=== PATIENT | male | born 1940 | race Caucasian/White ===

== ENCOUNTER 2016-11-02 22:35 | Inpatient (IN) | payer OTHER ==
[~2016-11-02] VITALS: Ht 165.1 cm; Wt 97.5 kg
[~2016-11-02 22:35] MED LIST: METOPROLOL; VALS80TA2 PO
[2016-11-02 22:41] VITALS: BP_SYST 164
--- NOTE | 2016-11-02 23:07 | NUR ---
Patient triaged and placed in waiting room. VSS and patient appears in no acute distress at this time. Accompanied by partner , awaiting available bed, and MD notified of need for MSE.Labs ordered , MD aware
--- NOTE | 2016-11-02 23:08 | NUR ---
Report given to Eileen PARIS
--- NOTE | 2016-11-02 23:26 | NUR ---
Patient to ER bed 1 to gown for evaluation. Side rails up. Report given to WELLINGTON FELIX.
--- NOTE | 2016-11-02 23:30 | NUR ---
Pt states he has been having lower abd pain since yesterday and today it has been getting worse. Rates it at 10/10. Nausea with vomitting. Will continue to monitor. No other injuries or complaints mentioned/noted. No distress noted.
--- NOTE | 2016-11-02 23:30 | NUR ---
ER Dr. Coe at bedside examining patient.
--- NOTE | 2016-11-02 23:30 | NUR ---
Note aminah in EDM - 11/02/16 at 2346 by GENEVA Pt states that she had three mechanical falls due to her legs "giving out." Pt states she land on her R buttock all three times. Pt states this has not happen to her before. Pt is getting chemo and radiation for bone cancer. Pt states she is not any pain or discomfort. Denies N/V. Pt is AAOx4. Will continue to monitor. No other injuries or complaints mentioned/noted. No distress noted.
[2016-11-02 23:37] LABS: BASOPHILS # (AUTO) 0.1 K/uL (0.0-0.2); BASOPHILS % (AUTO) 0.7 % (0.0-2.0); EOSINOPHILS % (AUTO) 0.1 % (0.0-4.0); HEMATOCRIT 44.3 % (36-54); HEMOGLOBIN 14.4 g/dL (14.0-18.0); LYMPHOCYTES % (AUTO) 8.7 % (20.5-51.5); MEAN CORPUSCULAR HEMOGLOBIN 29 pg (27-31); MEAN CORPUSCULAR HGB CONC 32 % (32-36); MEAN CORPUSCULAR VOLUME 90 fL (79.0-98.0); MONOCYTES # (AUTO) 0.3 K/uL (0.0-1.0); MONOCYTES % (AUTO) 2.3 % (1.7-9.3); NEUTROPHILS # (AUTO) 10.5 K/uL (1.8-7.7); NEUTROPHILS % (AUTO) 88.2 % (40.0-70.0); PLATELET COUNT (AUTO) 168 K/uL (130-430); RED BLOOD CELL COUNT(AUTO) 4.93 MIL/uL (4.2-6.2); RED CELL DISTRIBUTION WIDTH 13.5 % (9.0-15.0); WHITE BLOOD COUNT (AUTO) 11.9 K/uL (4.8-10.8)
[2016-11-02] MEDS ORDERED: NACL 0.9% 1,000 ML IV ONE (23:37)
[2016-11-02] MEDS ORDERED: MORPHINE 4 MG/ML INJ. SYRINGE IVP ONE (23:45)
[2016-11-02] MEDS ORDERED: ONDANSETRON HCL 4 MG/2 ML VIAL IVP ONE (23:45)
[2016-11-02] MEDS ORDERED: DIPHENHYDRAMINE INJ 50 MG/ML VIAL IVP ONE (23:45)
[2016-11-02 23:49] LABS: ANION GAP 8 (5-15); CALCIUM 9.6 mg/dL (8.4-11.0); CHLORIDE 103 mmol/L (98-107); CREATININE 1.75 mg/dL (0.55-1.30); GLUCOSE 153 mg/dL (70-99); POTASSIUM 3.9 mmol/L (3.5-5.1); SODIUM SERUM 141 mmol/L (136-145); UREA NITROGEN, BLOOD 26 mg/dL (8-21)
[2016-11-02 23:54] LABS: ALANINE AMINOTRANSFERASE 28 U/L (12-78); ALBUMIN 3.9 g/dL (3.4-4.8); ASPARTATE AMINOTRANSFERASE 22 U/L (10-37); LIPASE 145 U/L (73-393); TOTAL BILIRUBIN 0.7 mg/dL (0.0-1.0); TOTAL PROTEIN, SERUM 8.5 g/dL (6.4-8.3)
--- NOTE | 2016-11-03 | NUR ---
# 20 gauge angiocath placed to R AC. Use of asceptic technique. Opsite placed over site. Blood return noted. Flushed with 10 cc of normal saline. No evidence of infiltration noted. Patient tolerated well.
[2016-11-03 01:42] LABS: PROTHROMBIN TIME 10.9 SECS (9.5-12.5)
[2016-11-03] MEDS ORDERED: ONDANSETRON HCL 4 MG/2 ML VIAL IVP PRN (02:15)
[2016-11-03] MEDS ORDERED: LOSA100T11 PO (02:29)
[2016-11-03] MEDS ORDERED: VALS160T2 PO (02:29)
[2016-11-03] MEDS ORDERED: ALLO100T PO (02:29)
[2016-11-03] MEDS ORDERED: SIMV80TA74 PO (02:29)
[2016-11-03] MEDS ORDERED: NIFE60TA7 PO (02:29)
[2016-11-03] MEDS ORDERED: LIP40 PO (02:29)
[2016-11-03] MEDS ORDERED: OMEP20CA10 PO (02:29)
[2016-11-03] MEDS ORDERED: APIX5TAB PO (02:29)
[2016-11-03] MEDS ORDERED: METO-442 PO (02:29)
[2016-11-03] MEDS ORDERED: TERA5CAP58 PO (02:29)
--- NOTE | 2016-11-03 02:30 | NUR ---
Medication reconciliation completed with information provided by PATIENT. Any prior medication reconciliation on file was reviewed and corrected.
--- NOTE | 2016-11-03 02:30 | NUR ---
Patient will be admitted to care of Dr. Flynn. Admitted to Med Surg unit. Will go to room 118A. Belongings list completed. Summary report printed. Report will be given at bedside.
--- NOTE | 2016-11-03 02:37 | NUR ---
ADMISSION NOTE Received patient from ER via abad, received report from ISIDRO PARIS. Patient admitted with diagnosis of SMALL BOWEL OBSTRUCTION. Patient oriented to hospital routine, call light, toileting and safety-patient verbalized understanding.
[2016-11-03 02:50] VITALS: BP_SYST 137
[2016-11-03] MEDS: D5NS 1,000 ML IV SCH (03:17)
[2016-11-03] MEDS: MORPHINE 2 MG/ML INJ. SYRINGE IVP PRN ×2 (03:25→09:46)
--- NOTE | 2016-11-03 03:45 | NUR ---
initial notes: pt came in complain of lower abdominal pain. ambulate to bed. steady gait. no acute distress. no sob. vital sign are with in normal limit, assess pt. iv lock right ac gauge 20-intact and patent. explained to pt poc. orient to room, call light, tv, bathroom. explain to pt medication and side effects specially pain medication. safety and instructed to call for assistance. pt verbalized understanding. needs attended. call light in reach. side rails up. bed alarm on. will follow-up.
--- NOTE | 2016-11-03 05:56 | NUR ---
round notes: assisted pt to urinate, specimen collect and send to lab. for ua. needs attended. call light in reach. will follow-up.
[2016-11-03 06:09] LABS: BILIRUBIN,URINE NEGATIVE (NEGATIVE); CLARITY/URINE SL HAZY (CLEAR); COLOR,URINE YELLOW (YELLOW); GLUCOSE,URINE NEGATIVE (NEGATIVE); KETONES,URINE NEGATIVE (NEGATIVE); LEUKOCYTE ESTERASE ,URINE NEGATIVE (NEGATIVE); NITRITE, URINE NEGATIVE (NEGATIVE); PROTEIN URINE TRACE (NEGATIVE); UROBILINOGEN,URINE 0.2 (0.2-1.0)
[2016-11-03 06:15] VITALS: BP_SYST 135
[2016-11-03 06:30] LABS: BLOOD, URINE TRACE (NEGATIVE)
[2016-11-03 06:34] LABS: BACTERIA,URINE RARE /HPF (None Seen); RBC,URINE 0-3 /HPF (0-3); WBC,URINE NONE SEEN /HPF (0-3)
--- NOTE | 2016-11-03 07:29 | NUR ---
CLOSING: Pt is resting. stable. no pain. no distress. no sob. ivf infusing well. call light in reach, safety on. bedside report to am nurse.
--- NOTE | 2016-11-03 08:43 | NUR ---
0730 AM ROUNDSLATE ENTRY DUE TO PT CARE PT SITTING UP AT EDGE OF BED..DENIES PAIN AT THIS TIME...DENIES N/V/D...IVF INFUSING WELL TO RAC...PT AWARE OF NPO STATUS...WILL CONT TO MONITOR
--- NOTE | 2016-11-03 09:48 | NUR ---
PT C/O 03/09 PAIN TO ABDOMEN..COVERING NURSE WILL MEDICATE
[2016-11-03 10:15] LABS: BASOPHILS % (AUTO) 0.1 % (0.0-2.0); EOSINOPHILS % (AUTO) 0.1 % (0.0-4.0); HEMATOCRIT 40.5 % (36-54); HEMOGLOBIN 13.2 g/dL (14.0-18.0); LYMPHOCYTES # (AUTO) 1.2 K/uL (1.0-5.5); LYMPHOCYTES % (AUTO) 11.8 % (20.5-51.5); MEAN CORPUSCULAR HEMOGLOBIN 29 pg (27-31); MEAN CORPUSCULAR HGB CONC 33 % (32-36); MEAN CORPUSCULAR VOLUME 90 fL (79.0-98.0); MONOCYTES # (AUTO) 0.6 K/uL (0.0-1.0); PLATELET COUNT (AUTO) 176 K/uL (130-430); RED BLOOD CELL COUNT(AUTO) 4.49 MIL/uL (4.2-6.2); RED CELL DISTRIBUTION WIDTH 13.6 % (9.0-15.0); WHITE BLOOD COUNT (AUTO) 9.8 K/uL (4.8-10.8)
[2016-11-03 10:34] LABS: ANION GAP 2 (5-15); CALCIUM 8.8 mg/dL (8.4-11.0); CHLORIDE 105 mmol/L (98-107); CREATININE 1.58 mg/dL (0.55-1.30); GLUCOSE 158 mg/dL (70-99); POTASSIUM 3.8 mmol/L (3.5-5.1); SODIUM SERUM 139 mmol/L (136-145); UREA NITROGEN, BLOOD 30 mg/dL (8-21)
[2016-11-03 10:39] LABS: ALANINE AMINOTRANSFERASE 24 U/L (12-78); ALBUMIN 3.3 g/dL (3.4-4.8); ASPARTATE AMINOTRANSFERASE 17 U/L (10-37); TOTAL BILIRUBIN 0.5 mg/dL (0.0-1.0); TOTAL PROTEIN, SERUM 7.5 g/dL (6.4-8.3)
--- NOTE | 2016-11-03 10:53 | NUR ---
CONSULT CALLED FOR DR JOHNSON DX: SBO SPOKE W/WISAM SHABAZZ
[2016-11-03 10:55] VITALS: BP_SYST 139
[2016-11-03 12:25] VITALS: BP_SYST 130
--- NOTE | 2016-11-03 13:14 | NUR ---
UNSUCCESSFUL NGT PLACEMENT ATTEMPTED NGT PLACEMENT 3 TIMES BY TWO NURSES...UNABLE TO ADVANCE TUBE DUE TO RESISTANCE...RADIOLOGIST ( INFORMED)...
[2016-11-03] MEDS ORDERED: GASTROGRAFIN 120 ML ONE (13:34)
--- NOTE | 2016-11-03 15:21 | NUR ---
PT BACK TO ROOM FROM RADIOLOGY...PT WILL RETURN FOR MORE PICTURES IN ABOUT ONE HOUR PT REMAINS NPO
[2016-11-03 16:10] VITALS: BP_SYST 132
--- NOTE | 2016-11-03 18:07 | NUR ---
PT AMBULATED TO RESTROOM WITH STEADY GAIT SMALL BOWEL FOLLOW THROUGH STILL BEING DONE...PT REMAINS NPO
[2016-11-03] MEDS: METOPROLOL TARTRATE 50 MG TABLET PO SCH (22:05)
[2016-11-03 23:46] VITALS: BP_SYST 135
[2016-11-04 04:19] VITALS: BP_SYST 132
[2016-11-04] MEDS: D5NS 1,000 ML IV SCH ×2 (04:54→12:56)
[2016-11-04 08:00] VITALS: BP_SYST 150
--- NOTE | 2016-11-04 08:00 | NUR ---
initial notes rec patient awake alert with ivf infusing well on the l wrist. no infiltration noted. npo maintained until seen by dr howell. denies pain at this time. resp easy and unlabored. no sob noted. bed in low position and side rails up and locked. fall/safety precaution reinforced. call light within reached. will ocntinue to konitor patient.
[2016-11-04] MEDS: METOPROLOL TARTRATE 50 MG TABLET PO SCH ×2 (08:50→20:57)
[2016-11-04] MEDS: NIFEDIPINE 60 MG TABLET.SA (PROCARDIA XL 60 MG) PO SCH (08:51)
--- NOTE | 2016-11-04 08:54 | NUR ---
md dr howell in the room and eval the patient and with orders.
--- NOTE | 2016-11-04 11:00 | NUR ---
rounds ultrasound of the abdomen being done at bedside.
--- NOTE | 2016-11-04 12:31 | NUR ---
seen by dr lee and planned for sx in am. no acute distress noted.
[2016-11-04 12:48] VITALS: BP_SYST 152
--- NOTE | 2016-11-04 14:00 | NUR ---
rounds pt have a late lunch and anderson well. no abd pain noted. resting comfortably.
[2016-11-04 16:00] VITALS: BP_SYST 148
--- NOTE | 2016-11-04 16:00 | NUR ---
rounds pre op teaching rendered to patient with sister at the bedside. instructed re npo post midnight as well and understood.
--- NOTE | 2016-11-04 18:30 | NUR ---
closing notes denies any abdominal pain or nausea and vomiting. no sob noted. call light within reached. bed in low position and side rails up and locked. stable needs attended.
[2016-11-04 19:00] VITALS: BP_SYST 171
--- NOTE | 2016-11-04 19:15 | NUR ---
change of shift.pt.presents stable affect.apprised that pt.is to submit to surgery;11/05/16 per .i am to f/u re;the surgery check-list.pt.diet status;to change:npo @midnight.reiterated to the pt.iv fluids infusing,room air o2 sat5 stable.no c/o pain,nausea,nor sob upon excertion. call light w/in pt's reach.
[2016-11-04 20:00] VITALS: BP_SYST 171
--- NOTE | 2016-11-04 20:00 | NUR ---
pt.assessed.v/s assessed;values w/in normal limits.no c/o pain,nausea.i inquired if the pt.presents request i have offered snacks;p/t midnight pt.stated no he is fine.call light w/in the pt's reach.
--- NOTE | 2016-11-04 21:00 | NUR ---
pt.assessed.no c/o pain nausea.pt.stated the room is cold.pt.provided a blanket;warmed. i have telephoned security and apprised them of the necessity to increase the room temp. call light w/in the pt's reach.
--- NOTE | 2016-11-04 22:00 | NUR ---
pt.assessed.pt.presents quiescent affect;calm,.asleep.no distress/discomfort manifested. iv fluids infusing.call light w/in the pt's reach.
[2016-11-05] VITALS (7 sets, daily range): BP systolic 121–176
--- NOTE | 2016-11-05 | NUR ---
pt.assessed.pt.presents quiescent affect;calm,asleep.no distress/discomfort manifested. call light w/in pt's reach.
--- NOTE | 2016-11-05 01:00 | NUR ---
pt.assessed.pt.presents quiescent affect;calm,asleep.i have attended to the surgery check-list.i have weighted the pt. no distress/discomfort noted.call light w/in pt's reach.
--- NOTE | 2016-11-05 02:00 | NUR ---
pt.assessed.pt.presents quiescent affect;calm,asleep.no distress/discomfort manifested. call light w/in pt's reach.
--- NOTE | 2016-11-05 04:00 | NUR ---
pt.assessed.v/s assessed:values w/in normal limits.no distress/discomfort manifested. call light w/in pt's reach.
[2016-11-05] MEDS: D5NS 1,000 ML IV SCH ×3 (05:23→20:54)
[2016-11-05 06:31] LABS: BASOPHILS % (AUTO) 0.3 % (0.0-2.0); EOSINOPHILS # (AUTO) 0.3 K/uL (0.0-0.4); EOSINOPHILS % (AUTO) 3.3 % (0.0-4.0); HEMATOCRIT 30.3 % (36-54); LYMPHOCYTES % (AUTO) 24.6 % (20.5-51.5); MEAN CORPUSCULAR HEMOGLOBIN 30 pg (27-31); MEAN CORPUSCULAR HGB CONC 33 % (32-36); MEAN CORPUSCULAR VOLUME 91 fL (79.0-98.0); MONOCYTES # (AUTO) 0.5 K/uL (0.0-1.0); MONOCYTES % (AUTO) 5.8 % (1.7-9.3); NEUTROPHILS # (AUTO) 5.3 K/uL (1.8-7.7); PLATELET COUNT (AUTO) 149 K/uL (130-430); PROTHROMBIN TIME 10.4 SECS (9.5-12.5); RED BLOOD CELL COUNT(AUTO) 3.34 MIL/uL (4.2-6.2); RED CELL DISTRIBUTION WIDTH 13.4 % (9.0-15.0); WHITE BLOOD COUNT (AUTO) 8.1 K/uL (4.8-10.8)
[2016-11-05 06:59] LABS: ALANINE AMINOTRANSFERASE 18 U/L (12-78); ALBUMIN 2.8 g/dL (3.4-4.8); ANION GAP 5 (5-15); ASPARTATE AMINOTRANSFERASE 18 U/L (10-37); CALCIUM 7.9 mg/dL (8.4-11.0); CHLORIDE 112 mmol/L (98-107); CREATININE 1.38 mg/dL (0.55-1.30); GLUCOSE 88 mg/dL (70-99); POTASSIUM 3.8 mmol/L (3.5-5.1); SODIUM SERUM 141 mmol/L (136-145); TOTAL BILIRUBIN 0.4 mg/dL (0.0-1.0); TOTAL PROTEIN, SERUM 6.2 g/dL (6.4-8.3); UREA NITROGEN, BLOOD 35 mg/dL (8-21)
--- NOTE | 2016-11-05 07:00 | NUR ---
pt.to submit to surgery:today:11/05/16 per ,.tentative hour;1400pm.i have attended tot surgical check-list.i have collected the mrsa;nares swab.i have attended to the chg -bath.pt.presents diabetic hx: i have assessed the blood glucose:89mg/dl this am.to f/u w/ the attending for order:ac/hs. call light w/in the pt's reach.no c/o pain,nausea this am.
--- NOTE | 2016-11-05 07:46 | NUR ---
initial note patient AOx4, sitting up at bedside, speaking with neighbor, patient denies pain and nausea at this time, patient aware that he is NPO, aware that he has surgery at 2pm
[2016-11-05] MEDS: NIFEDIPINE 60 MG TABLET.SA (PROCARDIA XL 60 MG) PO SCH (09:00)
--- NOTE | 2016-11-05 09:22 | NUR ---
Nutrition Update Carlito Scale 18 noted. Pt admitted for SBO. Diet: NPO BMI: 35.8 kg/m2 RD to follow per nutrition care standards.
[2016-11-05] MEDS: METOPROLOL TARTRATE 50 MG TABLET PO SCH ×2 (09:25→20:54)
--- NOTE | 2016-11-05 10:15 | NUR ---
crimper assembler evaluation Dr. Harris at bedside evaluating patient, verbal order 400 mg amiodarone to be given now, one hour before surgery and Q8H
--- NOTE | 2016-11-05 10:43 | NUR ---
rounds patient Aox4, sitting up at bedside, speaking with , patient aware of his arrhythmic medication to be given now, patient has no complaints at this time
[2016-11-05] MEDS ORDERED: AMIODARONE HCL 200 MG TABLET PO ONE ×2 (10:45→13:00)
--- NOTE | 2016-11-05 11:01 | NUR ---
vital signs recheck vital signs within normal limits patient ambulated to the restroom unassisted, tolerated well
--- NOTE | 2016-11-05 13:13 | NUR ---
rounds patient sitting up at bedside, Aox4, patient has no complaints, denies nausea and vomitting, patient aware that surgery is now scheduled at 1500
--- NOTE | 2016-11-05 14:10 | NUR ---
MD rounds consult with anesthesiologist, Dr. Lucas, Diogo Delgado confirming that patient is not on any blood thinners, requesting accucheck before surgery, notified Dr. LUCAS that patient's blood pressure is 177/71 at this time
[2016-11-05] MEDS ORDERED: ONDANSETRON HCL 4 MG/2 ML VIAL IVP ONE (14:31)
[2016-11-05] MEDS ORDERED: GLYCOPYRROLATE 0.2 MG/ML VIAL IJ ONE (14:31)
[2016-11-05] MEDS ORDERED: LR 1,000 ML IV.SOLN IV ONE (14:31)
[2016-11-05] MEDS ORDERED: SEVOFLURANE 15 MIN GAS INH ONE (14:31)
[2016-11-05] MEDS ORDERED: CEFAZOLIN 2 GM IVPB PREMIX 50 ML IV ONE (14:31)
[2016-11-05] MEDS ORDERED: fentaNYL CITRATE/PF 100 MCG/2 ML AMP IVP ONE (14:31)
[2016-11-05] MEDS ORDERED: MIDAZOLAM HCL 5 MG/5 ML VIAL IVP ONE (14:31)
[2016-11-05] MEDS ORDERED: KETOROLAC TROMETHAMINE 30 MG VIAL IVP ONE (14:31)
[2016-11-05] MEDS ORDERED: ROCURONIUM BROMIDE 10 MG/ML (ZEMURON) IV ONE (14:31)
[2016-11-05] MEDS ORDERED: NEOSTIGMINE METHYLSULFATE 1 MG/ML, 10 ML VIAL IVP ONE (14:31)
[2016-11-05] MEDS ORDERED: PROPOFOL 200MG/ 20ML VIAL (DIPRIVAN) IV ONE (14:31)
[2016-11-05] MEDS ORDERED: NS IRRIG SOLN 1000 ML IR ONE (14:31)
--- NOTE | 2016-11-05 14:50 | NUR ---
surgery patient taken to OR, patient AOx4, last vital signs taken and documented on chart
[2016-11-05] MEDS ORDERED: LR 1,000 ML IV SCH (15:23)
[2016-11-05] MEDS ORDERED: MEPERIDINE HCL/PF 25 MG/ML DISP.SYRIN IVP PRN ×2 (15:30)
[2016-11-05] MEDS ORDERED: HYDROmorphone 1 MG INJ. 1 MG/ML AMPUL IVP PRN (15:30)
[2016-11-05] MEDS ORDERED: HYDROmorphone 2 MG/ML VIAL IVP PRN ×2 (15:30)
[2016-11-05] MEDS ORDERED: ONDANSETRON HCL 4 MG/2 ML VIAL IVP PRN (15:30)
[2016-11-05] MEDS ORDERED: HYDROmorphone 1 MG INJ. 1 MG/ML AMPUL ONE ×2 (16:39→17:09)
--- NOTE | 2016-11-05 17:20 | NUR ---
s/p surgery patient brought back from OR, accompanied by WELLINGTON eRnee and admit RN, patient asleep, easily arousable, patient had laproscopic cholestectomy, 0.25 mg of marcaine was used around surgical site, abdominal nerve block perfomed, 4 incisions around surgical site, patient complained of 10/10 pain, was given 1mg of Dilaudid IVP twice, patient placed on 2L O2 via nasal cannula, woke up patient by calling name, patient AOx4, states pain level is 5/10, went back to sleep Addendum: 11/05/16 at 1843 by Lashawn Daigle RN 4 abd incisions with dressing clean and dry
--- NOTE | 2016-11-05 17:54 | NUR ---
IS instruction woke patient up and instructed patient how to use IS, instructed patient that he must use it 10x/Q1hr, patient demonstrated his understanding, patient refuses liquid diet at this time, states "I don't feel like eating", patient reports 10/07 pain at this time Addendum: 11/05/16 at 1824 by Manjula Salguero RN patient maximum inspiration volume at 1500ml
--- NOTE | 2016-11-05 18:45 | NUR ---
final round patient lying in gurney supine, sleeping, easily arousable, vital signs Q15 min respirations even and unlabored Addendum: 11/05/16 at 1903 by Manjula Salguero RN sbar report given to incoming shift
--- NOTE | 2016-11-05 19:45 | NUR ---
PM ASSESSMENT PT. A/OX4, VITAL SIGNS STABLE, NO DISTRESS NOTED, DENIES PAIN, ENCOURAGED USE OF INCENTIVE SPIROMETER 10X/HR WHILE AWAKE, PT. VERBALIZED UNDERSTANDING AND ABLE TO DEMONSTRATE PROPER USE UP TO 1500. NOTED WITH ABDOMINAL DRESSINGS X3, BILATERAL SCDS IN PLACE. UPDATED WITH PLAN OF CARE, CALL LIGHT WITHIN REACH, BED IN LOWEST POSITION.
[2016-11-05] MEDS: AMIODARONE HCL 200 MG TABLET PO SCH (20:53)
--- NOTE | 2016-11-05 21:28 | NUR ---
RN ROUNDS PT. IS DRINKING APPLE JUICE, DENIES NAUSEA, VITAL SIGNS STABLE, NO DISTRESS NOTED, DENIES PAIN. CALL LIGHT WITHIN REACH, BED IN LOWEST POSITION.
--- NOTE | 2016-11-05 23:25 | NUR ---
RN ROUNDS PT. SLEEPING, VITAL SIGNS STABLE, NO DISTRESS NOTED, DENIES PAIN. CALL LIGHT WITHIN REACH, BED IN LOWEST POSITION.
--- NOTE | 2016-11-06 01:15 | NUR ---
RN ROUNDS PT. SLEEPING, NO DISTRESS NOTED, NO S/S OF PAIN OR DISCOMFORT, REPOSITIONED WITH PILLOW SUPPORT, CALL LIGHT WITHIN REACH, BED IN LOWEST POSITION.
--- NOTE | 2016-11-06 03:11 | NUR ---
RN ROUNDS PT. SLEEPING, NO DISTRESS NOTED, NO S/S OF PAIN OR DISCOMFORT, CALL LIGHT WITHIN REACH, BED IN LOWEST POSITION.
[2016-11-06 03:56] VITALS: BP_SYST 149
--- NOTE | 2016-11-06 05:00 | NUR ---
RN ROUNDS PT. SLEEPING, NO DISTRESS NOTED, NO S/S OF PAIN OR DISCOMFORT, REPOSITIONED WITH PILLOW SUPPORT, CALL LIGHT WITHIN REACH, BED IN LOWEST POSITION.
[2016-11-06] MEDS: D5NS 1,000 ML IV SCH (05:48)
[2016-11-06] MEDS: AMIODARONE HCL 200 MG TABLET PO SCH ×2 (05:49→13:09)
[2016-11-06 06:25] LABS: ALANINE AMINOTRANSFERASE 57 U/L (12-78); ALBUMIN 2.7 g/dL (3.4-4.8); ANION GAP 5 (5-15); CALCIUM 8.2 mg/dL (8.4-11.0); CHLORIDE 110 mmol/L (98-107); CREATININE 1.48 mg/dL (0.55-1.30); GLUCOSE 123 mg/dL (70-99); POTASSIUM 4.3 mmol/L (3.5-5.1); SODIUM SERUM 142 mmol/L (136-145); TOTAL BILIRUBIN 0.5 mg/dL (0.0-1.0); TOTAL PROTEIN, SERUM 6.4 g/dL (6.4-8.3); UREA NITROGEN, BLOOD 28 mg/dL (8-21)
[2016-11-06 06:30] LABS: HEMATOCRIT 29.3 % (36-54); HEMOGLOBIN 9.7 g/dL (14.0-18.0); LYMPHOCYTES # (AUTO) 0.9 K/uL (1.0-5.5); LYMPHOCYTES % (AUTO) 7.2 % (20.5-51.5); MEAN CORPUSCULAR HEMOGLOBIN 30 pg (27-31); MEAN CORPUSCULAR HGB CONC 33 % (32-36); MEAN CORPUSCULAR VOLUME 92 fL (79.0-98.0); MONOCYTES # (AUTO) 0.8 K/uL (0.0-1.0); MONOCYTES % (AUTO) 6.6 % (1.7-9.3); NEUTROPHILS # (AUTO) 11.1 K/uL (1.8-7.7); NEUTROPHILS % (AUTO) 86.2 % (40.0-70.0); PLATELET COUNT (AUTO) 159 K/uL (130-430); RED BLOOD CELL COUNT(AUTO) 3.21 MIL/uL (4.2-6.2); RED CELL DISTRIBUTION WIDTH 13.4 % (9.0-15.0)
[2016-11-06 06:37] LABS: ASPARTATE AMINOTRANSFERASE 72 U/L (10-37)
--- NOTE | 2016-11-06 06:38 | NUR ---
CLOSING NOTES PT. RESTING QUIETLY, VITAL SIGNS STABLE, NO DISTRESS NOTED, DENIES PAIN, DRESSINGS IN PLACE TO ABDOMEN, CLEAN, DRY, INTACT. IV ACCESS PATENT AND BENIGN. ALL ANTICIPATED NEEDS MET. KEPT COMFORTABLE.
[2016-11-06 06:43] LABS: WHITE BLOOD COUNT (AUTO) 12.8 K/uL (4.8-10.8)
[2016-11-06 07:58] VITALS: BP_SYST 127
--- NOTE | 2016-11-06 08:00 | NUR ---
NOTE PT SITTING UP IN BED EATING HIS BREAKFAST. NO SOB/RESP DISTRESS OR PAIN/DISCOMFORT NOTED AT THIS TIME. LEFT IV SITE INTACT AND PATENT, IVF'S INFUSING WELL AT THIS TIME. NO NEEDS NOTED. CALL LIGHT WITHIN REACH.
[2016-11-06] MEDS: NIFEDIPINE 60 MG TABLET.SA (PROCARDIA XL 60 MG) PO SCH (09:07)
[2016-11-06] MEDS: METOPROLOL TARTRATE 50 MG TABLET PO SCH (09:07)
--- NOTE | 2016-11-06 11:00 | NUR ---
NOTE PT'S 3 SMALL LAP SITES - DRESSINGS ARE INTACT AND DRY. NO PAIN/DISCOMFORT NOTED. PT AMBULATES TO RESTROOM INDEPENDENTLY WITH IV POLE. DR WATTS WAS ON THE FLOOR AND DISCHARGED PT HOME IF OKAY WITH SURGEON DR JOHNSON. PT NOTIFIED AND QUESTIONS/CONCERNS WERE ANSWERED AT THIS TIME. NO NEEDS NOTED. CALL LIGHT WITHIN REACH.
[2016-11-06 12:00] VITALS: BP_SYST 125
--- NOTE | 2016-11-06 13:00 | NUR ---
NOTE PT SITTING UP IN BED AND FINISHING HIS LUNCH. NO SOB/RESP DISTRESS OR PAIN/DISCOMFORT NOTED AT THIS TIME. PT DENIES ANY NEEDS AT THIS TIME. CALL LIGHT WITHIN REACH. NO NEEDS NOTED.
--- NOTE | 2016-11-06 14:30 | NUR ---
NOTE PT WAS SEEN AND ASSESSED BY DR JOHNSON. PT WAS GIVEN DISCHARGE ORDER. DR SEGOVIA (CARDIO) ON THE FLOOR - VERBAL ORDER GIVEN FOR PT TO CONTINUE ELIQUIS PO AT HOME. DR JOHNSON VERBALIZED SAME ORDER - TO CONTINUE ELIQUIS AT HOME. QUESTIONS/CONCERNS WERE ANSWERED BY DR JOHNSON AT THIS TIME WELL. NO NEEDS NOTED. PT'S IV WAS DC'D PER PT'S REQUEST. NO SWELLING/DRAINAGE/BLEEDING/REDNESS AT SITE NOTED AT THIS TIME. PT HAS BEEN AMBULATING IN ROOM AND TO HALLWAY ALL SHIFT. CALL LIGHT WITHIN REACH.
[2016-11-06 15:43] VITALS: BP_SYST 129
[2016-11-06 16:35] VITALS: BP_SYST 133
--- NOTE | 2016-11-06 17:00 | NUR ---
NOTE PT DRESSED IN STREET CLOTHES. PT AND HIS SISTER PACKED ALL HIS BELONGINGS AND CHECKED SIDE TABLE AND DRAWERS. PT WAS GIVEN DISCHARGE INSTRUCTIONS AND QUESTIONS/CONCERNS WERE ANSWERED. PT WAS GIVEN DR JOHNSON'S ADDRESS AND TELEPHONE NUMBER FOR FOLLOW UP VISIT. NO SOB/RESP DISTRESS OR PAIN/DISCOMFORT WAS NOTED AT THIS TIME. PT'S 2 SMALL LAP SITES ARE INTACT AND DRY WITH DRESSINGS AT THIS TIME. PT STABLE. PT OFF THE FLOOR VIA WHEELCHAIR TO PRIVATE CAR WITH ALL HIS BELONGINGS. NO NEEDS NOTED.
--- NOTE | 2016-11-10 15:55 | NUR ---
Discharge Follow Up Phone Call [employer] phoned patient, . Patient stated he was doing well. He made his follow up appointments. He uses a blood glucose monitor as directed. Patient stated he has no questions or concerns. No further follow up needed.
== END 2016-11-06 17:00 | disposition home or self-care (01) | DRG 417 ==
LOC: SED 22:35 → SMU 11-03 02:14
PROVIDERS: ADMIT Internal Medicine Hospice and Palliative Medicine; ATTEND Internal Medicine Hospice and Palliative Medicine
PROC: 0FT44ZZ Resection of Gallbladder, Percutaneous Endoscopic Approach (ICD-10-PCS; principal; 2016-11-05 15:15)
DX: K80.00 Calculus of gallbladder with acute cholecystitis without obstruction (principal); N17.0 Acute kidney failure with tubular necrosis; D68.69 Other thrombophilia; E44.1 Mild protein-calorie malnutrition; I10 Essential (primary) hypertension; E78.5 Hyperlipidemia, unspecified; E66.9 Obesity, unspecified; K57.90 Diverticulosis of intestine, part unspecified, without perforation or abscess without bleeding; N28.1 Cyst of kidney, acquired; I48.0 Paroxysmal atrial fibrillation; I48.2 Chronic atrial fibrillation; E11.9 Type 2 diabetes mellitus without complications; Z79.899 Other long term (current) drug therapy; Z71.3 Dietary counseling and surveillance; Z68.35 Body mass index [BMI] 35.0-35.9, adult; Z82.49 Family history of ischemic heart disease and other diseases of the circulatory system
CPT/HCPCS: 36415; 71010; 74250-TC; 76700-TC; 80053; 81000-TC; 82962; 83690-TC; 85025; 85610-TC; 85730-TC; 87081; 88304; 93005; 96361; 96374; 96375; 99285; C1727; J0690; J1170; J1200; J1885; J2250; J2270; J2405; J2704; J2710; J3010; J3490; J7030; J7042; J7120; Q9963